=== PATIENT | male | born 1985 ===

== ENCOUNTER 2016-10-02 15:52 | Emergency (ER) | payer OTHER ==
[2016-10-02 15:58] VITALS: BP 133/68; RESP 16; TEMP 97.9; O2SAT 99
--- NOTE | 2016-10-02 16:27 | ED PDOC ---
Lower Extremity Pain/Injury Time Seen by Provider: 10/02/16 16:02 Chief Complaint (Nursing): Lower Extremity Problem/Injury Chief Complaint (Provider): Lower Extremity Problem/Injury History Per: Patient History/Exam Limitations: no limitations Onset/Duration Of Symptoms: Days Current Symptoms Are (Timing): Still Present Severity: Mild Additional Complaint(s): 31 y/o male patient presenting to the ED with Right knee pain. PT states the pain started began last when he was walking down the street and suddenly started having pain in his knee. He states as of today he has only taken Advil which has not resolved his symptoms. He denies any pain in the left knee and denies any allergies or prior medical conditions. Past Medical History Reviewed: Historical Data, Nursing Documentation, Vital Signs Vital Signs: Last Vital Signs Temp 97.9 F 10/02/16 15:54 Pulse 18 L 10/02/16 15:54 Resp 16 10/02/16 15:54 BP 133/68 10/02/16 15:54 Pulse Ox 99 10/02/16 15:54 - Medical History PMH: No Chronic Diseases - Surgical History Surgical History: No Surg Hx - Family History Family History: States: Unknown Family Hx - Home Medications Home Medications: Ambulatory Orders Medication Instructions Recorded Ibuprofen [Motrin] 600 mg PO Q6 #20 tab 10/02/16 - Allergies Allergies/Adverse Reactions: Allergies Allergy/AdvReac Type Severity Reaction Status Date / Time No Known Allergies Allergy Verified 10/02/16 15:54 Review of Systems ROS Statement: Except As Marked, All Systems Reviewed And Found Negative Constitutional: Negative for: Fever Respiratory: Negative for: Shortness of Breath Musculoskeletal: Positive for: Leg Pain ((+)Right Knee Pain) Skin: Negative for: Rash Physical Exam - Reviewed Nursing Documentation Reviewed: Yes Vital Signs Reviewed: Yes - Physical Exam Appears: Positive for: Non-toxic, No Acute Distress Skin: Positive for: Normal Color, Warm Extremity: Positive for: Swelling (Right Leg (-)Drawer Sign, (+)Pain when Bending) Neurologic/Psych: Positive for: Alert, Oriented. Negative for: Motor/Sensory Deficits - ECG O2 Sat by Pulse Oximetry: 99 (RA) Pulse Ox Interpretation: Normal Medical Decision Making Medical Decision Making: Time: 1602 Initial impression: Knee Pain Initial plan: --KNEE 3 VIEWS --IBUPROFEN 600MG XR: Mild pleural effusion noted, no fracture or dislocation, as read by LEYLA HODGES therapy advised and Pt given Ortho referral for follow up. Placed in knee immobilizer and was able to ambulate out of ED. Delcined crutches Scribe Attestation: Documented by Betina Andre acting as a scribe for SUZANNE Ansari MD Scribe Attestation: All medical record entries made by the Scribe were at my direction and personally dictated by me. I have reviewed the chart and agree that the record accurately reflects my personal performance of the history, physical exam, medical decision making, and the department course for this patient. I have also personally directed, reviewed, and agree with the discharge instructions and disposition. Disposition - Clinical Impression Clinical Impression: Knee injury, Knee pain - Patient ED Disposition Is Patient to be Admitted: No - Disposition Referrals: Mary Alatorre MD [Staff Provider] - Disposition: Routine/Home Disposition Time: 17:31 Condition: STABLE Prescriptions: Ibuprofen [Motrin] 600 mg PO Q6 #20 tab Instructions: Knee Pain (ED), Swollen Joint (ED) Forms: [employer] ([place]ian) - POA Present On Arrival: None
--- NOTE | 2016-10-02 17:05 | RAD ---
PROCEDURE: Right Knee Radiographs. HISTORY: COMPARISON: None available. FINDINGS: BONES: No acute displaced fracture. JOINTS: No dislocation. JOINT EFFUSION: Small suprapatellar joint effusion. OTHER FINDINGS: None. IMPRESSION: Small suprapatellar joint effusion. No acute displaced fracture or dislocation identified. If symptoms persist, or if there is continued clinical concern, x-ray follow-up in 7-10 days should be considered.
[2016-10-02 17:51] VITALS: PULSE 76
== END 2016-10-02 17:50 | disposition home or self-care (01) ==
LOC: H.ER 15:52
DX: M25.561 Pain in right knee (principal)

== ENCOUNTER 2016-10-17 09:58 | Emergency (ER) | payer OTHER ==
[2016-10-17 10:04] VITALS: BP 114/69; TEMP 98; BMI 28.3
[2016-10-17 10:13] VITALS: O2SAT 98
[2016-10-17] MEDS ORDERED: Oxycodone/Acetaminophen 5/325 mg Tab PO STA (10:20)
--- NOTE | 2016-10-17 10:22 | ED PDOC ---
Lower Extremity Pain/Injury Time Seen by Provider: 10/17/16 10:11 Chief Complaint (Nursing): Lower Extremity Problem/Injury Chief Complaint (Provider): right knee pain History Per: Patient History/Exam Limitations: no limitations Onset/Duration Of Symptoms: Days (x 2 weeks ) Additional Complaint(s): Josh Allen is a 31 year old male, with no previous medical history, who presents to the ED with complaints of continuous right knee pain ongoing for the past 2 weeks while he was walking. Patient was seen in the ED on 10/02/16 where an x-ray was preformed and a referral was given to follow up with orthopedist which he reports not doing so. Patient has an MRI preformed on 10/11 which reports a large medial meniscal tear to the right knee (official report scanned into the chart). Patient reports having a previous meiscal repair on the same knee in the past. He reports scheduling an appointment with Dr. Alatorre 2 weeks from now but is unable to take the pain which prompted ED visit. He states to taking motrin for pain with no relief. PMD: Dr. Alatorre Past Medical History Vital Signs: Last Vital Signs Temp 98 F 10/17/16 10:02 Pulse 69 10/17/16 10:02 Resp BP 114/69 10/17/16 10:02 Pulse Ox 98 10/17/16 10:11 - Family History Family History: States: Unknown Family Hx - Home Medications Home Medications: Ambulatory Orders Medication Instructions Recorded Ibuprofen [Motrin] 600 mg PO Q6 #20 tab 10/02/16 Naproxen [Naprosyn] 500 mg PO BID PRN #15 tablet 10/17/16 oxyCODONE/Acetaminophen [Percocet 1 tab PO Q6H PRN #15 tab 10/17/16 5/325 mg Tab] - Allergies Allergies/Adverse Reactions: Allergies Allergy/AdvReac Type Severity Reaction Status Date / Time No Known Allergies Allergy Verified 10/17/16 10:11 Review of Systems ROS Statement: Except As Marked, All Systems Reviewed And Found Negative Musculoskeletal: Positive for: Leg Pain (right knee ) Physical Exam - Reviewed Nursing Documentation Reviewed: Yes Vital Signs Reviewed: Yes - Physical Exam Appears: Positive for: Well, Non-toxic, No Acute Distress Head Exam: Positive for: ATRAUMATIC, NORMAL INSPECTION, NORMOCEPHALIC Extremity: Positive for: Tenderness (right medial knee ), Capillary Refill (< 2 seconds ), Swelling (right knee ). Negative for: Deformity, Other (crepitus ) Neurologic/Psych: Positive for: Alert, Oriented - ECG O2 Sat by Pulse Oximetry: 98 (RA) Pulse Ox Interpretation: Normal Medical Decision Making Medical Decision Making: Initial Impression: Right knee pain Initial Plan: * percocet * crutches * knee immobilizer * disposition Scribe Attestation: Documented by Yajaira Presley, acting as a scribe for Yajaira Benjamin MD. Provider Scribe Attestation: All medical record entries made by the Scribe were at my direction and personally dictated by me. I have reviewed the chart and agree that the record accurately reflects my personal performance of the history, physical exam, medical decision making, and the department course for this patient. I have also personally directed, reviewed, and agree with the discharge instructions and disposition. Disposition - Clinical Impression Clinical Impression: Meniscus tear - Disposition Disposition: Routine/Home Disposition Time: 10:20 Condition: STABLE Additional Instructions: FOLLOW-UP WITH DR. ALATORRE SCHEDULED. Prescriptions: Naproxen [Naprosyn] 500 mg PO BID PRN #15 tablet PRN Reason: Pain, Moderate (4-7) oxyCODONE/Acetaminophen [Percocet 5/325 mg Tab] 1 tab PO Q6H PRN #15 tab PRN Reason: Pain, Severe (8-10) Instructions: Meniscus Tear (ED) Print Language: SWISS
[2016-10-17 12:36] VITALS: PULSE 74; RESP 20
== END 2016-10-17 12:36 | disposition home or self-care (01) ==
LOC: H.ER 09:58
DX: M25.561 Pain in right knee (principal)

== ENCOUNTER 2017-03-18 06:58 | Day surgery (SDC) | payer SELFPAY ==
[2017-03-14 09:51] VITALS: BMI 26.3
[2017-03-18] MEDS ORDERED: Lactated Ringer's 1,000 ML IV ONE ×2 (08:15→13:00)
[2017-03-18] MEDS ORDERED: ceFAZolin IV 1 gm in Dextrose 2 GM/100 ML BAG IVPB ONE (09:20)
[2017-03-18] MEDS ORDERED: methylPREDNISolone Depo 80 mg/ml Inj ONE (09:20)
[2017-03-18] MEDS ORDERED: Bupivacaine HCl 0.25% PF (30 ml) Inj ONE (09:20)
[2017-03-18] MEDS ORDERED: Lidocaine 2% w Epi 1:100,000 Inj IJ ONE (09:20)
[2017-03-18] MEDS ORDERED: Propofol 10 mg/ml Inj (20 ML) ONE (09:23)
[2017-03-18] MEDS ORDERED: Midazolam 2 MG/2 ML VIAL ONE (09:23)
[2017-03-18] MEDS ORDERED: Lidocaine 4% (Laryng-O-Jet) Kit MM ONE (09:23)
[2017-03-18] MEDS ORDERED: Lidocaine 2% w Epi 1:200,000 Pf Inj IJ ONE (11:16)
[2017-03-18] MEDS ORDERED: Naloxone 0.4 mg/ml Inj (Adult) ONE (11:31)
[2017-03-18] MEDS ORDERED: Bupivacaine 0.5% Inj(30mL) IJ ONE (11:32)
[2017-03-18] MEDS ORDERED: MethylPREDNISolone Depo 40 mg/ml Inj IM ONE (11:32)
--- NOTE | 2017-03-18 11:44 | PCM.SURG1 ---
Surgeon's Initial Post Op Note - Surgeon's Notes Surgeon: Mary Alatorre MD Knowledge Engineer: Katie Type of Anesthesia: General Endo Pre-Operative Diagnosis: Right knee meniscus tear Operative Findings: see op report Post-Operative Diagnosis: same as pre-op dx Operation Performed: Right knee arthroscopy, partial meniscectomy, synovectomy, injection Specimen/Specimens Removed: none Estimated Blood Loss: EBL {In ML}: 3 Date of Surgery/Procedure: 03/18/17 Time of Surgery/Procedure: 11:00
[2017-03-18] MEDS ORDERED: Oxycodone/Acetaminophen 5/325 mg Tab PO PRN (11:45)
[2017-03-18] MEDS ORDERED: HYDROmorphone 0.5 mg/0.5 ml ISec IVP PRN (11:50)
[2017-03-18] MEDS ORDERED: Sodium Chloride 0.9% 1,000 ML IV SCH (12:00)
[2017-03-18 13:20] VITALS: BP 139/81; PULSE 63; RESP 18; TEMP 98
[2017-03-18 14:18] VITALS: O2SAT 99
--- NOTE | 2017-03-18 17:54 | OP ---
PROCEDURE DATE: 03/18/2017 ATTENDING SURGEON: Mary Alatorre MD SANITATION LABORER: YADIRA Grijalva PREOPERATIVE DIAGNOSES: 1. Right knee medial meniscal tear. 2. Synovitis. 3. Adhesions. POSTOPERATIVE DIAGNOSES: 1. Right knee tricompartmental synovitis. 2. Tear of the posterior horn of medial meniscus. 3. Tear of the body of lateral meniscus. 4. 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 5. Patellofemoral adhesions. PROCEDURES: 1. Right knee arthroscopy; partial, medial and lateral meniscectomy. 2. Chondroplasty of medial femoral condyle. 3. Major synovectomy of three compartments. 4. Anterior lysis of adhesions. TYPE OF ANESTHESIA: General. ESTIMATED BLOOD LOSS: 5 mL SPECIMEN: None. COMPLICATIONS: None. CLOSURE: Primary. FLUIDS: See anesthesia sheet. INDICATIONS: After failing a course of nonoperative therapy, the patient elected to undergo the above procedure. In the office, the risks and possible complications of knee arthroscopy were discussed in detail with the patient. These risks include but are not limited to continued pain, lack of motion, infection, vascular injury, DVT / PE, nerve injury including peroneal nerve dysfunction, reflex sympathetic dystrophy, compartment syndrome, unforeseen medical and/or anesthesia complications, limb loss, and even . The patient expressed an understanding of the risks and possible benefits of the procedure, and is also aware of the alternatives to surgery. An informed consent was obtained, and was checked immediately preop. PROCEDURE: The patient was correctly identified in the holding area and the right knee was marked with the surgeon's initials. The patient was transported to the operating room and placed in the supine position, general anesthesia was obtained. A preoperative orthopedic exam revealed effusion none, range of motion 0-120, stable to varus and valgus stress. The lower extremity was prepped and draped in the standard fashion, and the thigh was placed in an arthroscopic leg castorena. A well-padded tourniquet was applied to the patient's thigh. Timeout was completed confirming the correct operative site. Esmarch was used to exsanguinate the leg and tourniquet was inflated to 300 mmHg. A standard anterolateral viewing portals were made with a #11 blade after subdermal 1% lidocaine with epinephrine injection. The knee was distended with normal saline and epinephrine in a 1:1,000,000 mixture, at an initial pressure of 35 mmHg. The arthroscope was inserted from the anterolateral portal and moved into the medial compartment. Next, the anteromedial working portal was made with spinal needle localization. The arthroscopic probe was inserted, and all compartments of the knee were sequentially visualized. FINDINGS: Arthroscopic examination of the knee revealed: 1. Major synovitis of all three compartments. 2. Tear of the posterior horn medial meniscus. 3. Tear of the body of the lateral meniscus. 4. 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 5. Anterior patellofemoral adhesions. The anterior cruciate ligament and posterior cruciate ligament were intact. Partial medial meniscectomy was performed with a combination of hand instruments and a 4.0-mm motorized shaver. The meniscus was debrided to a smooth, stable border with an excursion of less than 3 mm. Partial lateral meniscectomy was performed with a combination of hand instruments and a 4.0-mm motorized shaver. The meniscus was debrided to a smooth, stable border with an excursion of less than 5 mm. The motorized shaver was used to mechanically debride the loose, fibrillated and fragmented chondral edges of the medial femoral condyle to a stable border. Extreme care was taken to not disrupt the adjacent chondral surface. The edges of injured chondral area were probed to ensure stability after the shaver was withdrawn from the knee. The motorized shaver was used to perform a synovectomy of the medial, lateral and patellofemoral compartments. The hypertrophic synovium was resected with minimal bleeding. No synovial incarceration was noted after synovectomy when the knee was put through a full passive range of motion. Due to injuries to the patellofemoral region resulting in organized scar and suprapatellar adhesions, a decision was made to perform and anterior interval release to decrease the patellofemoral joint reaction force and relieve pressures over the patella and trochlea. The synovectomy was carried over to the suprapatellar pouch and an anterior interval release was performed over the anterior compartment and the suprapatellar pouch with the motorized shaver. The anterior fat pad was released and debulked during this procedure. The inflow was shut off and the area checked for hemostasis. Small bleeders were coagulated with the radiofrequency device. Post operatively, the patient will be weight bearing as tolerated and will utilize my standard post arthroscopy rehab protocol. The patient will be started on straight leg raising and quadriceps setting exercises in the recovery room and will progress to prone hangs as well as prone knee flexion exercises using an active assisted construct. During this procedure, I was assisted by YADIRA Grijalva, who assisted in positioning the patient on the operating room table as well as transferring the patient from the operating room table to the recovery room stretcher. In addition, YADIRA Grijalva, assisted me during the actual operative procedure by positioning the patient's extremity to allow for easier arthroscopic access to all areas of the joint. The presence of YADIRA Grijalva, as my operative senior court office assistant, was medically necessary to ensure the utmost safety of the patient in the pre, intra-, and postoperative periods. Mary Alatorre MD
== END 2017-03-18 14:31 | disposition home or self-care (01) ==
LOC: H.OPSURG 06:58
PROVIDERS: ATTEND Orthopaedic Surgery
DX: M65.811 Other synovitis and tenosynovitis, right shoulder (principal); M94.211 Chondromalacia, right shoulder; S83.241A Other tear of medial meniscus, current injury, right knee, initial encounter; X58.XXXA Exposure to other specified factors, initial encounter; M75.01 Adhesive capsulitis of right shoulder
CPT/HCPCS: 29820; 29825; 29826; 29880; 97161; G8978; G8979; G8980; J0690; J1030; J1040; J1885; J2001; J2250; J2310; J2405; J2704; J2765; J3010; J7030; J7040; J7120